=== PATIENT | male | born 1960 | race Caucasian/White ===

== ENCOUNTER 2020-01-18 21:34 | Emergency (ER) | payer MEDICARE, OTHER, SELFPAY ==
[2020-01-18 22:14] VITALS: BP 136/89; PULSE 91; RESP 18; TEMP 36.7; O2SAT 98; BMI 30.5
--- NOTE | 2020-01-18 22:58 | ED_ITS ---
HPI - General Adult General: Chief complaint: General Medical Stated complaint: arm pain Time Seen by Provider: 01/18/20 22:58 History of Present Illness: HPI narrative: Patient is a 59-year-old male who comes to the ED with right elbow pain. Patient says that he currently does not have any right elbow pain but the pain occurred last night. Patient says he woke up and had an aching burning pain in the right elbow region and he then applied some ice on right elbow and pain went away. Patient currently does not have any right elbow pain or discomfort. 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 Denies any swelling in the right arm or any aching pain in the right shoulder. Associated symptoms: Deny chest pain, dyspnea, headache(s), nausea, rash, palpitations or vomiting Review of Systems Const: Denies: fever(s), chills or fatigue Eyes: Denies: change in vision or eye discomfort ENMT: Denies: throat pain, odynophagia, nasal discharge or nasal congestion Card: Denies: chest pain, palpitations, edema, swelling of feet/ankles, dyspnea on exertion or orthopnea Resp: Denies: dyspnea, productive cough or non-productive cough GI: Denies: abdominal pain, nausea, vomiting, diarrhea, constipation or hematochezia : Denies: flank pain, difficulty urinating, dysuria or hematuria Musc: Reports: extremity pain (right elbow pain, resolved before coming to the ED); Denies: neck pain, back pain or extremity swelling Skin/Breast: Denies: rash or new lesions Neuro: Denies: headache(s), numbness in extremities or weakness in extremities PFS ED PFSH: Social History Smoking and tobacco status: former smoker Quit status (tobacco): has quit using tobacco Year quit tobacco: 2014 Physical Exam Const: COMMON NORMALS: patient oriented x3 HENMT: COMMON NORMALS: normocephalic HEAD & SCALP: normocephalic MOUTH: Normal oral and palatal mucosa present THROAT: posterior oropharynx normal and uvula midline Eye: COMMON NORMALS: Equal, round and reactive pupils present PUPIL: Yes Equal, round and reactive pupils present Neck/C-Spine: COMMON NORMALS: supple GENERAL: Yes normal visual inspection Resp: COMMON NORMALS: normal respiratory effort, No retractions, No use of accessory muscles and clear to auscultation bilaterally AUSCULTATION: clear to auscultation bilaterally Cardio: COMMON NORMALS: regular rate, regular rhythm, S1 normal heart sound present, S2 normal heart sound present, No gallops present (Cardio), No clicks present (Cardio), No murmurs present (Cardio) and Peripheral pulses 2+ throughout RATE: regular rate RHYTHM: regular rhythm HEART SOUNDS: S1 normal heart sound present and S2 normal heart sound present PERIPHERAL PULSES: Peripheral pulses 2+ throughout GI: COMMON NORMALS: Normal to inspection, nondistended, normoactive bowel sounds present, Soft to palpation, non-tender and no masses PALPATION: Yes Soft to palpation : COMMON NORMALS: Yes no CVA tenderness BLADDER/KIDNEY EXAM: Yes no CVA tenderness Back/Pelvis: COMMON NORMALS: no CVA tenderness Extremity: RIGHT UPPER EXTREMITY: Yes elbow joint (No erythema, swelling or warmth.) Right elbow: Yes inspection, Yes palpation (Patient had some tenderness over the lateral aspect of elbow (extensor tendon region)), Yes ROM (full-no pain) and Yes neurovascular exam (intact, 2+ radial pulse) Neuro: COMMON NORMALS: patient oriented x3 and moves all extremities Skin: COMMON NORMALS: no rashes or lesions noted GENERAL SKIN EXAM: no rashes or lesions noted and dry skin Course Vital Signs: Vital signs: Vital Signs Temperature 98.0 F 01/18/20 22:14 Pulse Rate 91 01/18/20 22:14 Respiratory Rate 18 01/18/20 22:14 Blood Pressure 136/89 01/18/20 22:14 Pulse Oximetry 98 01/18/20 22:14 MDM - General Adult MDM Narrative: Medical decision making narrative: Patient is a 59-year-old male who comes to the ED with right elbow pain. Patient woke up from his sleep last night with aching burning right elbow pain that resolved after a applied so me ice on the elbow. He has has not had any elbow pain since. Physical exam showed some tenderness over that extends there tendon region of the lateral aspect of the elbow. Patient was told to ice area and to take Tylenol for pain. Follow-up with your PCP in 5 to 7 days for reevaluation. Patient was told he can come back to the ED for reevaluation if symptoms worsen, aching pain in shoulder or right upper extremity swelling. Patient understood and agreed with plan. Discharge Plan Discharge Patient Disposition: Home, Self-Care Clinical Impression: Tendonitis of elbow, right Condition: Stable Prescriptions: No Action levothyroxine [Synthroid] 50 mcg tablet 50 mcg PO DAILY RF: 0 olmesartan 20 mg tablet 20 mg PO DAILY RF: 0 cetirizine 10 mg tablet 10 mg PO DAILY RF: 0 nitroglycerin topical DAILY RF: 0 Discharge Orders: Discharge Order (Routine); Ordered 01/18/20 Ordered By: Michael Llanos Referrals: Audrey De La Garza [Primary Care Provider] - Discharge Diet: Regular Discharge Activity: Increase activity as tolerated Patient Instructions: Tendinitis (ED) Activity Restrictions/Additional Instructions: Follow-up with your PCP in 5 to 7 days for reevaluation. Apply ice on right elbow and take Tylenol for pain relief. You can return to ED if symptoms worsen or you start getting swelling in right arm or aching shoulder pain. Coding Level of Care Code ED Obiee Lead Developer for Lidia Fwwilla Exam Comprehensive
[2020-01-19 00:01] VITALS: BP 120/88; PULSE 82; RESP 18; O2SAT 100
== END 2020-01-19 00:04 | disposition home or self-care (01) ==
PROVIDERS: Emergency Provider Physician Assistant; PCP Nurse Practitioner Family
DX: M77.9 Enthesopathy, unspecified (principal); Z87.891 Personal history of nicotine dependence
CPT/HCPCS: 12345; 99281

== ENCOUNTER → 2020-04-06 09:50 | Outpatient (BNVA) | payer MEDICARE, OTHER, SELFPAY | PROVIDERS: PCP Nurse Practitioner Family; Visit Provider Urology | DX: N41.1 Chronic prostatitis (principal); N48.6 Induration penis plastica; Z12.5 Encounter for screening for malignant neoplasm of prostate | CPT/HCPCS: 81001 ==

== ENCOUNTER → 2021-04-06 09:06 | Outpatient (BNVA) | payer MEDICARE, BC, SELFPAY | PROVIDERS: PCP Nurse Practitioner Family; Visit Provider Urology | DX: N41.1 Chronic prostatitis (principal); A60.00 Herpesviral infection of urogenital system, unspecified; N52.9 Male erectile dysfunction, unspecified; N48.6 Induration penis plastica; Z12.5 Encounter for screening for malignant neoplasm of prostate | CPT/HCPCS: 81003; G0103 ==

== ENCOUNTER 2021-05-09 13:31 | Emergency (ER) | payer MEDICARE, BC, SELFPAY ==
[2021-05-09 13:42] VITALS: BP 125/78; PULSE 87; RESP 26; TEMP 36.9; O2SAT 100
--- NOTE | 2021-05-09 14:00 | ECG_ITS ---
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 Measurements Intervals [place] Rate: 80 P: 50 WA: 138 QRS: -11 QRSD: 97 T: 27 QT: 379 QTc: 438 Interpretive Statements SINUS RHYTHM INCOMPLETE RIGHT BUNDLE BRANCH BLOCK [90+ ms QRS DURATION, TERMINAL R IN V1/V2, 40+ ms S IN I/aVL/V4/V5/V6] Compared to ECG 09/04/2017 21:06:20 Incomplete right bundle-branch block now present Electronically Signed On 05-09-2021 21:42:07 CDT by Chet Mccartney M.D. [id number] f
--- NOTE | 2021-05-09 14:00 | XRR_ITS ---
PROCEDURE INFORMATION: Exam: XR Chest Exam date and time: 05/09/2021 2:00 PM Age: 61 years old Clinical indication: Pain; Chest pressure; Additional info: Chest pain TECHNIQUE: Imaging protocol: XR of the chest. Views: 1 view. COMPARISON: CR Chest 2 views* [id number] 09/04/2017 9:37 PM FINDINGS: Lungs: Unremarkable. No consolidation. Pleural spaces: Unremarkable. No pleural effusion. No pneumothorax. Heart/Mediastinum: Unremarkable. No cardiomegaly. Bones/joints: Unremarkable. XR/XR chest 1V portable [id number] IMPRESSION: No acute findings.
[2021-05-09 14:15] LABS: Basophils % 0.4 %; Eosinophils # 0.1 10^3/uL (0.0-0.8); Eosinophils % 2.1 %; Hematocrit 40.8 % (42.0-52.0); Lymphocytes # 1.4 10^3/uL (0.8-4.8); Lymphocytes % 24.5 %; Mean Corpuscular HGB Conc 34.3 g/dL (30.0-36.0); Mean Corpuscular Hemoglobin 31.4 pg (28.0-34.0); Mean Corpuscular Volume 91.5 fl (80-94); Mean Platelet Volume 9.1 fL (7.4-10.4); Monocytes # 0.5 10^3/uL (0.2-0.9); Neutrophils # 3.62 10^3/uL (1.8-7.7); Neutrophils % 63.8 %; Nucleated Red Blood Cells % 0 %; Platelet Count 239 10^3/cmm (130-400); Red Blood Count 4.46 10^6/uL (4.1-5.3); Red Cell Distribution Width 12.4 % (12.1-15.1); White Blood Count 5.7 10^3/uL (4.0-10.0)
[2021-05-09 14:27] VITALS: BP 117/79; PULSE 83; RESP 16; O2SAT 98
[2021-05-09] MEDS: aspirin 325 mg Tablet PO (14:29)
[2021-05-09 14:30] VITALS: BP 135/72; PULSE 90; O2SAT 100
[2021-05-09 14:37] LABS: Troponin(5th) Baseline 8 ng/L (0-15)
[2021-05-09 14:50] LABS: Anion Gap 13.7 (5-19); Blood Urea Nitrogen 13 mg/dL (8-23); Calcium 8.8 mg/dL (8.5-10.5); Carbon Dioxide 29 mmol/L (22-29); Chloride 102 mmol/L (98-107); Glomerular Filtration Rate 98.3 mL/min (90-130); Glucose 89 mg/dL (65-115); Osmolality Calculated 292 mOsm/kg (285-295); Potassium 3.7 mmol/L (3.5-5.1); Sodium 141 mmol/L (136-145)
[2021-05-09 14:57] LABS: D Dimer <= 0.27 ug/mIFEU (0-0.59)
--- NOTE | 2021-05-09 15:00 | ED_ITS ---
HPI - General Adult General: Chief complaint: Chest Pain Stated complaint: cp,abd pain Time Seen by Provider: 05/09/21 13:42 History of Present Illness: HPI narrative: CC: Chest Pain HPI: This is a [61] yo patient hx of HTN presenting to the ED complaining of back pain radiating to the L chest x 1 day WITHOUT radiation to the back or shoulders. No associated with shortness of breath, chest pain or dyspnea on exertion. Pain is not tearing in nature and does not radiate to the back. Pain not associated with vomiting or PO intake. Denies any recent sympathomimetic drug use. Patient denies any cough. Denies palpitations, dysphagia, diaphoresis, radiation of pain to bilateral arms, jaw. Denies F/N/V/D. Patient denies any recent immobility, surgery, unilateral leg swelling, or prior PE. Patient denies any orthopnea. Onset: 1 days ago acutely, chronically 3 month Duration: ongoing for the 1 day Location: home Severity: mild/moderate Review of Systems Narrative: Constitutional: No fever, no chills. HEENT: No vision changes, no sore throat. CV: +chest pain, no palpitations. PULM: No cough, No dyspnea. GI: No abdominal pain, no N/V/D. : No dysuria, no frequency, no hematuria. MSKEL: No arthralgias, no edema. SKIN: No new rashes, no lesions. NEURO: No headache, no focal weakness. HEME: No easy bleeding or bruising. PSYCH: No change in mood or affect. [facility] ED PFSH: Medical History (Updated 05/09/21 @ 15:02 by Yo Rahman MD) Chronic prostatitis Erectile dysfunction Herpes genitalia Hypothyroid Painful penile erection Peyronie disease Surgical History (Updated 04/06/21 @ 09:10 by Saul Busby MD) History of cholecystectomy History of knee surgery History of shoulder surgery Family History Father , at age 79 Heart attack Mother , at age 83 Alzheimers disease Social History Smoking and tobacco status: former smoker Quit status (tobacco): has quit using tobacco Year quit tobacco: 2014 Alcohol intake: never Adopted: No Caregiver/support person: No Lives independently: Yes Marital status: Current occupational status: retired Physical Exam Narrative: EXAM NARRATIVE: Head: Atraumatic, normocephalic Eyes: PERRL, EOMI, conjunctiva without injection ENT: Throat without erythema, lesions or exudate, MMM NECK: Supple, trachea midline, no JVD LUNGS: LCTA CV: RRR, S1,S2, no murmurs, rubs, gallops. 2+ peripheral pulses in UEs ABDOMEN: Soft, nontender, nondistended, BS x4, no rigidity, no guarding, no rebound EXTREMITY: Normal ROM, no pitting edema, no calf tenderness to palpation SKIN: No rash or erythema NEURO: Awake and alert. No focal motor deficits. PSYCH: Normal mood and affect. Course Vital Signs: Vital signs: Vital Signs Temperature 98.5 F 05/09/21 13:42 Pulse Rate 69 05/09/21 17:22 Respiratory Rate 16 05/09/21 14:27 Blood Pressure 123/79 05/09/21 17:22 Pulse Oximetry 98 05/09/21 17:22 MDM - General Adult MDM Narrative: Medical decision making narrative: [61]yo patient w/ hx of HTN presenting to the ED with evaluation of worsening back pain radiating to the L chest x 1 day in the setting pain x 3 months. HDS, pulse 2+ radially bilaterally, no signs of fluid overload, AAOx3, neuro exam intact. Given History and Exam today I have no suspicion for ACS, Pneumothorax, Pneumonia, Pulmonary Embolus, Tamponade, Aortic Dissection or other emergent problems as a cause for this presentation. Workup: ECG, CXR, CBC, BMP, Troponin x 2 Interventions: ASA for pain Findings: ECG: No overt evidence of STEMI, hyperacute T waves, localizable STD or T wave inversions. No evidence of Brugada?s sign, delta wave, epsilon wave, significantly prolonged QTc, or malignant arrhythmia. No Q waves. Other Labs unremarkable for emergent problems. CXR: Without PTX, PNA, or widened mediastinum HEART Score: 1 (story), 1(age) Dimer- negative [3:14] On reassessment, the patient is HDS, no complaints of persistent chest pain in the ED after evaluation. ECG is non-ischemic. Workup today is unremarkable. Troponin x 2 negative. Doubt ACS/PE or other emergent causes of chest pain. No suspicion for aortic dissection given no widened mediastinum, 2+ upper extremity pulses, negative dimer, or tearing pain. No suspicion for PE given no pleuritic chest pain, recent immobilization or surgery hemoptysis, or other VTE risk factors. EKG is non-ischemic. XR normal. I have offered patient further evaluation for cardiac workup with our javascript engineer should he still have any concerns but patient declined at this time. Given patient strict return precaution for any worsening pain, shortness of breath, or any new or concerning complaints. Rx: Tylenol PRN pain Disposition: Discharge. Strict return precautions discussed with the patient with full understanding. Advised patient to follow up promptly with a primary care provider in 24-48 hrs if the patient has persistent symptoms. Given return instructions for any crushing/tearing chest pain, focal weakness, syncope or any new or concerning issues. Lab Data: Labs: Lab Results 05/09/21 05/09/21 05/09/21 14:04 14:04 14:04 WBC 5.7 10^3/uL 10^3/ uL (4.0-10.0) RBC 4.46 10^6/uL 10^6 /uL (4.1-5.3) Hgb 14.0 g/dL g/dL (11.7-16.6) Hct 40.8 % L % (42.0-52.0) MCV 91.5 fl fl (80-94) MCH 31.4 pg pg (28.0-34.0) MCHC 34.3 g/dL g/dL (30.0-36.0) RDW 12.4 % % (12.1-15.1) Plt Count 239 10^3/cmm 10^3 /cmm (130-400) MPV 9.1 fL fL (7.4-10.4) Neut % (Auto) 63.8 % % Lymph % (Auto) 24.5 % % Fleming % (Auto) 9.0 % % Eos % (Auto) 2.1 % % Baso % (Auto) 0.4 % % Neut # (Auto) 3.62 10^3/uL 10^3 /uL (1.8-7.7) Lymph # (Auto) 1.4 10^3/uL 10^3/ uL (0.8-4.8) Fleming # (Auto) 0.5 10^3/uL 10^3/ uL (0.2-0.9) Eos # (Auto) 0.1 10^3/uL 10^3/ uL (0.0-0.8) Baso # (Auto) 0.0 10^3/uL 10^3/ uL (0.0-0.1) Nucleated RBC % (a uto) 0 % % Nucleated RBCs # 0.0 /100WBC /100W BC D-Dimer Sodium 141 mmol/L mmol/L (136-145) Potassium 3.7 mmol/L mmol/L (3.5-5.1) Chloride 102 mmol/L mmol/L (98-107) Carbon Dioxide 29 mmol/L mmol/L (22-29) Anion Gap 13.7 (5-19) BUN 13 mg/dL mg/dL (8-23) Creatinine 0.8 mg/dL mg/dL (0.7-1.2) GFR Calculation 98.3 mL/min mL/mi n (90-130) Glucose 89 mg/dL mg/dL (65-115) Calculated Osmolal ity 292 mOsm/kg mOsm/ kg (285-295) Calcium 8.8 mg/dL mg/dL (8.5-10.5) Troponin T Baselin e 8 ng/L ng/L (0-15) Troponin T 120 Min elizabeth Delta Troponin T 05/09/21 05/09/21 14:04 16:18 WBC RBC Hgb Hct MCV MCH MCHC RDW Plt Count MPV Neut % (Auto) Lymph % (Auto) Fleming % (Auto) Eos % (Auto) Baso % (Auto) Neut # (Auto) Lymph # (Auto) Fleming # (Auto) Eos # (Auto) Baso # (Auto) Nucleated RBC % (a uto) Nucleated RBCs # D-Dimer <= 0.27 ug/mIFEU ug/mIFEU (0-0.59) Sodium Potassium Chloride Carbon Dioxide Anion Gap BUN Creatinine GFR Calculation Glucose Calculated Osmolal ity Calcium Troponin T Baselin e Troponin T 120 Min elizabeth 6.00 ng/L ng/L (0-15) Delta Troponin T -2.00 ABS# L ABS# (0-10) Imaging Data^: Other Imaging: Radiologist's impression: [facility] [place], [place] [address]DNdy ReportSigned Patient: Wayne Gr #: [id number]: 1960Acct#:[id number]/Sex: 61 / MADM Date: 05/09/21Loc: ERRoom/Bed:Attending Dr: Ordering Provider/Ordering MD: Yo Rahman MD Date of Service: 05/09/21 Procedure(s): XR chest 1V portable [id number] Accession Number(s): [id number] Report Number: [id number] PROCEDURE INFORMATION: Exam: XR Chest Exam date and time: 05/09/2021 2:00 PM Age: 61 years old Clinical indication: Pain; Chest pressure; Additional info: Chest pain TECHNIQUE: Imaging protocol: XR of the chest. Views: 1 view. COMPARISON: CR Chest 2 views* [id number] 09/04/2017 9:37 PM FINDINGS: Lungs: Unremarkable. No consolidation. Pleural spaces: Unremarkable. No pleural effusion. No pneumothorax. Heart/Mediastinum: Unremarkable. No cardiomegaly. Bones/joints: Unremarkable. XR/XR chest 1V portable [id number] IMPRESSION: No acute findings. Dictated By:Dikr Milligan MDSigned By:Dirk Milligan MDSigned Date/Time:05/09/21 1555DD/ 155 Discharge Plan Discharge Patient Disposition: Home Clinical Impression: Chest pain, Back pain Condition: Stable Prescriptions: New acetaminophen 500 mg tablet 500 mg PO Q6H PRN (Reason: pain) 5 Days Qty: 20 RF: 0 No Action Zyrtec 10 mg capsule 10 mg PO DAILY RF: 0 cholecalciferol (vitamin D3) 25 mcg (1,000 unit) capsule 25 mcg PO DAILY RF: 0 lysine 1,000 mg tablet 500 mg PO DAILY RF: 0 omeprazole 40 mg capsule,delayed release(DR/EC) 40 mg PO DAILY RF: 0 levothyroxine [Synthroid] 50 mcg tablet 50 mcg PO DAILY RF: 0 olmesartan 20 mg tablet 20 mg PO DAILY RF: 0 Metamucil 3.4 gram/5.4 gram Powder 2 tbsp PO DAILY RF: 0 Discharge Orders: Discharge ED (Routine); Ordered 05/09/21 Ordered By: Yo Rahman Referrals: Audrey De La Garza FNP [Primary Care Provider] - Discharge Diet: Advance as tolerated Discharge Activity: Resume usual activity Patient Instructions: Back Pain (ED) Activity Restrictions/Additional Instructions: Your evaluation was not suggestive of any emergent condition requiring medical intervention at this time. Your EKG did not show any acute changes. Please follow up with your primary care physician as needed. If you do not have a primary doctor, you can call your insurance company to find one. If you do not have insurance, you can look for one on this paper list or go to the finance/registration department for more assistance. Return to the ER immediately for worsening chest pain, palpitations, shortness of breath, persistent vomiting, fainting, or for any other concerning symptoms. Our case operator will have you follow-up with Cardiology in the next few days. You would be expected to have a phone call with our case operator who will put you on the schedule. Please follow up with Dr. Sheikh for EGD soon. Coding Level of Care Code ED Marketing Services Coordinator for Lidia Bowden
--- NOTE | 2021-05-09 16:00 | ECG_ITS ---
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 Measurements Intervals [place] Rate: 71 P: 60 [place]: 136 QRS: -5 QRSD: 95 T: 29 QT: 402 QTc: 439 Interpretive Statements SINUS RHYTHM WITH SINUS ARRHYTHMIA INCOMPLETE RIGHT BUNDLE BRANCH BLOCK [90+ ms QRS DURATION, TERMINAL R IN V1/V2, 40+ ms S IN I/aVL/V4/V5/V6] SEPTAL MYOCARDIAL INFARCTION , PROBABLY OLD [40+ ms Q WAVE IN V1/V2] Compared to ECG 05/09/2021 13:44:04 Myocardial infarct finding now present Electronically Signed On 05-09-2021 21:45:32 CDT by Chet Mccartney M.D. [id number] f
[2021-05-09 17:22] VITALS: BP 123/79; PULSE 69; O2SAT 98
--- NOTE | 2021-05-11 09:35 | DCPLANNER ---
icu manager had message to schedule a follow up appointment for patient with heart care. icu manager called heart care, spoke with Joyce, gave clinic patients information. A follow up appointment was scheduled for 05.19.21 at 2:[address] Whittington. icu manager called patient and gave patient the appointment information. Patient stated that he did not want the appointment at this time, he is following up with . icu manager called heart care, spoke with Joyce and cancelled the appointment.
== END 2021-05-09 17:23 | disposition home or self-care (01) ==
PROVIDERS: Emergency Provider Emergency Medicine; PCP Nurse Practitioner Family
DX: R07.9 Chest pain, unspecified (principal); M54.9 Dorsalgia, unspecified; Z87.891 Personal history of nicotine dependence
CPT/HCPCS: 36415; 71045; 80048; 84484; 85025; 85378; 93005; 99283

== ENCOUNTER 2022-04-05 08:16 | Outpatient (CLI) | payer MEDICARE, BC, SELFPAY ==
[2022-04-05 09:10] LABS: PSA Screen - Urology 0.31 ng/mL (0-4)
== END 2022-04-05 08:17 | disposition home or self-care (01) ==
LOC: LAB 08:18
PROVIDERS: PCP Nurse Practitioner Family; Visit Provider Urology
DX: Z12.5 Encounter for screening for malignant neoplasm of prostate (principal); N41.1 Chronic prostatitis; N52.9 Male erectile dysfunction, unspecified; A60.00 Herpesviral infection of urogenital system, unspecified
CPT/HCPCS: 36415; 51798; 81003; 99213; G0103